=== PATIENT | female | born 1970 | race Caucasian/White ===

== ENCOUNTER 2020-10-11 00:34 | Outpatient (CLI) | payer BC, OTHER, SELFPAY ==
[2020-10-11 21:24] LABS: SARS-CoV-2 RNA PCR Negative
== END 2020-10-11 00:35 | disposition home or self-care (01) ==
LOC: ANHCOVIDDT 00:34
PROVIDERS: PCP Family Medicine; Visit Provider Internal Medicine Gastroenterology
DX: Z01.812 Encounter for preprocedural laboratory examination (principal); Z20.828 Contact with and (suspected) exposure to other viral communicable diseases
CPT/HCPCS: 87635; C9803; U0003

== ENCOUNTER 2020-10-14 01:41 | Day surgery (SDC) | payer BC, OTHER, SELFPAY ==
[2020-10-04 10:24] VITALS: BMI 23.8
[2020-10-14 06:28] VITALS: BP 128/94; PULSE 74; RESP 20; TEMP 36.7; O2SAT 98
[2020-10-14] MEDS: LACTATED RINGERS 1,000 ML 150 ML IV CONT (06:37)
--- NOTE | 2020-10-14 07:10 | WPDANESEPPF ---
Anes - Initial Pre Proc Eval Procedure: Operation Date: 10/14/20 07:30 Proposed Procedures p Screening Colonoscopy - Vic Burger MD Date/Time: 10/14/20 07:10 Surgeon: Vic Burger MD Pre Op Diagnosis: Neoplasm Screening Patient Data Age: 50 Gender: F Height: 5 ft 6.5 in Weight: 68.6 kg Last Vital Signs Temp 98.0 F 10/14/20 06:28 Pulse 74 10/14/20 06:28 Resp 20 10/14/20 06:28 BP 128/94 H 10/14/20 06:28 Pulse Ox 98 10/14/20 06:28 Allergies Allergy/AdvReac Type Severity Reaction Status Date / Time No Known Allergies Allergy Unknown Verified 09/18/20 15:39 Home Medications Medication Instructions Recorded Confirmed Type sertraline 100 mg tablet 100 mg PO DAILY #90 tablet 09/13/20 10/04/20 Rx ferrous sulfate 325 mg (65 mg 325 mg PO DAILY 09/18/20 10/04/20 History iron) tablet methylphenidate HCl 27 mg 27 mg PO QAM 09/18/20 10/04/20 History tablet,extended release 24 hr sodium,potassium,mag sulfates 17.5 354 ml PO .COMPLEX #354 ml 09/24/20 Rx gram-3.13 gram-1.6 gram oral soln diphenhydramine HCl [Benadryl] 25 mg PO HS 10/04/20 10/04/20 History Patient hx anesthesia problems: none Family hx anesthesia problems: none PMFSH Past Medical History Medical History Acute cholecystitis Anemia Attention deficit disorder (ADD) Chronic fatigue Iron deficiency anemia Irritation of left eye (~05/2019) Mood disorder Muscle soreness (~10/2018) Situational anxiety Strain of left pectoralis muscle (~12/2018) Viral conjunctivitis, left eye (~04/2019) Weight gain Surgical History Surgical History History of cholecystectomy (~09/2017) [place] teeth extracted Family History Family History Father Hypertension Social History Social History Smoking status: Never smoker Second hand tobacco smoke exposure: No Alcohol intake: current Drinks per week: 6 Substance use: never Substance use type: does not use Living arrangements: with family Gender identity (if verbalized by the patient): Female Spiritual care concerns: No Anes - Eval Final PreProcedure Day of Procedure 10/14/20 07:10 Patient weight: normal Heart: regular rate and rhythm Lungs: clear to auscultation Airway: Mallampati scale class II Neurological: alert and oriented Last oral intake: >/= 8 hours ASA classification: II Emergent: no Anesthetic plan: proceed Anesthesia type and monitoring: general GIVS and standard monitoring Informed Consent: The patient's anesthetic plan and its attendant risks and benefits were discussed with the patient/family/POA. Questions were solicited and answers provided to the satisfaction of the patient/family/POA.
--- NOTE | 2020-10-14 07:34 | PM.HPGS ---
History of Present Illness History of Present Illness Consent: Risks, benefits, and alternatives have been discussed and questions answered. Patient agrees to proceed with procedure. Chief complaint: Neoplasm Screening Narrative: Maia Palumbo is a 50 year old female here for first screening colonoscopy Review of Systems Constitutional: Constitutional: Denies headache(s) and Denies weakness Eyes: Eyes: Denies blurry vision ENT: Reports Normal hearing present, Denies headache(s) and Denies neck pain Cardiovascular: Cardiovascular: Denies chest pain and Denies dyspnea Respiratory: Respiratory: Denies dyspnea Gastrointestinal: Gastrointestinal: Reports no additional gastrointestinal complaints Genitourinary: Genitourinary: Denies dysuria Musculoskeletal: Musculoskeletal: Denies neck pain Integumentary/Breasts: Skin/Breast: Denies dry skin Neurologic: Reports Normal hearing present, Denies headache(s) and Denies weakness Psychiatric: Psychiatric: Denies anxiety Endocrine: Endocrine: Denies change in body appearance Hematologic/Lymphatic: Hematologic/Lymphatic: Denies easy bleeding Allergic/Immunologic: Allergic/Immunologic: Denies urticaria PMFSH Past Medical History Medical History Acute cholecystitis Anemia Attention deficit disorder (ADD) Chronic fatigue Iron deficiency anemia Irritation of left eye (~05/2019) Mood disorder Muscle soreness (~10/2018) Situational anxiety Strain of left pectoralis muscle (~12/2018) Viral conjunctivitis, left eye (~04/2019) Weight gain Surgical History Surgical History History of cholecystectomy (~09/2017) [place] teeth extracted Family History Family History Father Hypertension Social History Social History Smoking status: Never smoker Second hand tobacco smoke exposure: No Alcohol intake: current Drinks per week: 6 Substance use: never Substance use type: does not use Living arrangements: with family Gender identity (if verbalized by the patient): Female Spiritual care concerns: No Meds Home Medications and Allergies Home Medications Medication Instructions Recorded Confirmed Type sertraline 100 mg tablet 100 mg PO DAILY #90 tablet 09/13/20 10/04/20 Rx ferrous sulfate 325 mg (65 mg 325 mg PO DAILY 09/18/20 10/04/20 History iron) tablet methylphenidate HCl 27 mg 27 mg PO QAM 09/18/20 10/04/20 History tablet,extended release 24 hr sodium,potassium,mag sulfates 17.5 354 ml PO .COMPLEX #354 ml 09/24/20 Rx gram-3.13 gram-1.6 gram oral soln diphenhydramine HCl [Benadryl] 25 mg PO HS 10/04/20 10/04/20 History Allergies Allergy/AdvReac Type Severity Reaction Status Date / Time No Known Allergies Allergy Unknown Verified 09/18/20 15:39 Vital Signs Vital Signs - 24 hr 10/14/20 06:28 Temperature 98.0 F Pulse Rate 74 Respiratory Rate 20 Blood Pressure 128/94 H Pulse Oximetry 98 Exam Const: General: comfortable and no acute distress HENMT: General nose exam: Normal nares present Eyes: General: appearance normal, both eyes and all related structures Neck: Neck: no JVD Resp: Auscultation: clear to auscultation bilaterally Cardio: Rate: regular rate Rhythm: regular rhythm GI: Inspection: non-distended GI Palp: Yes Soft to palpation Skin: General skin exam: normal color Neuro: General: gait normal Speech: normal speech Extrem: General: normal to inspection Psych: Mental Status: mental status grossly normal Assessment and Plan Assessment and plan (1) Colon cancer screening: Code(s): Z12.11 - Encounter for screening for malignant neoplasm of colon Status: Acute Assessment and Plan: will proceed with colonoscopy
[2020-10-14 07:53] VITALS: BP 85/50; PULSE 76; RESP 16; O2SAT 95
[2020-10-14 08:03] VITALS: BP 90/55; PULSE 79; RESP 18; O2SAT 98
[2020-10-14 08:13] VITALS: BP 99/59; PULSE 63; RESP 18; O2SAT 98
== END 2020-10-14 08:37 | disposition home or self-care (01) ==
PROVIDERS: PCP Family Medicine; Visit Provider Internal Medicine Gastroenterology
PROC: 0DJD8ZZ Inspection of Lower Intestinal Tract, Via Natural or Artificial Opening Endoscopic (ICD-10-PCS; CPT 45378; principal; 2020-10-14 07:30)
DX: Z12.11 Encounter for screening for malignant neoplasm of colon (principal); K64.8 Other hemorrhoids; D50.9 Iron deficiency anemia, unspecified; F39 Unspecified mood [affective] disorder; F98.8 Other specified behavioral and emotional disorders with onset usually occurring in childhood and adolescence
CPT/HCPCS: 45378; 87635; C9803; J2704; J7120; U0003

== ENCOUNTER → 2020-12-13 15:08 | Outpatient (CLI) | payer BC, OTHER, SELFPAY ==
--- NOTE | ~2020-12-13 | MM_ITS ---
EXAMINATION: MM screening gamal BI w teri HISTORY: Screening TECHNIQUE: Craniocaudal and mediolateral oblique 3-D tomosynthesis images were obtained and synthetic 2-D images were generated. CAD analysis was submitted and interpreted. COMPARISON: Comparison to multiple prior studies sequentially, with oldest reviewed study dated 06/27. BREAST PARENCHYMAL COMPOSITION: There are scattered areas of fibroglandular density. FINDINGS: There is no evidence of suspicious mass, calcification, or architectural distortion to sugg est malignancy in either breast. There has been no suspicious interval change. IMPRESSION: 1. No mammographic evidence of malignancy. 2. Recommend routine screening mammography in one year. BI-RADS Category 1: Negative Reviewed, dictated and finalized at location A. DUMPER
== END ==
PROVIDERS: Visit Provider Nurse Practitioner Obstetrics & Gynecology
DX: Z12.31 Encounter for screening mammogram for malignant neoplasm of breast (principal)
CPT/HCPCS: 77063; 77067

== ENCOUNTER → 2021-12-19 13:03 | Outpatient (CLI) | payer BC, OTHER, SELFPAY ==
--- NOTE | ~2021-12-19 | MM_ITS ---
EXAMINATION: MM screening gamal BI w teri HISTORY: Screening TECHNIQUE: Craniocaudal and mediolateral oblique 3-D tomosynthesis images were obtained and synthetic 2-D images were generated. CAD analysis was submitted and interpreted. COMPARISON: Comparison to multiple prior studies sequentially, with oldest reviewed study dated 07/15. BREAST PARENCHYMAL COMPOSITION: There are scattered areas of fibroglandular density. FINDINGS: There is no evidence of suspicious mass, calcification, or architectural distortion to sugg est malignancy in either breast. There has been no suspicious interval change. IMPRESSION: 1. No mammographic evidence of malignancy. 2. Recommend routine screening mammography in one year. BI-RADS Category 1: Negative Reviewed, dictated and finalized at location A. [employer]
== END ==
PROVIDERS: PCP Family Medicine; Visit Provider Family Medicine
DX: Z12.31 Encounter for screening mammogram for malignant neoplasm of breast (principal)
CPT/HCPCS: 77063; 77067

== ENCOUNTER → 2022-06-26 14:21 | Outpatient (CLI) | payer BC, OTHER, SELFPAY ==
--- NOTE | ~2022-06-26 | MMUS_ITS ---
EXAMINATION: MM diagnostic gamal LT w teri, US breast LT limited HISTORY: Palpable lump in the upper inner quadrant of the left breast TECHNIQUE: Craniocaudal, mediolateral, and mediolateral oblique 3-D tomosynthesis images of the breas ts were performed and synthetic 2-D images were generated. CAD analysis was submitted and interpreted . High resolution limited left breast ultrasound was performed. COMPARISON: 12/19/2021, 12/13/2020, 10/26/2019 BREAST PARENCHYMAL COMPOSITION: There are scattered areas of fibroglandular density. FINDINGS: MAMMOGRAPHIC FINDINGS: No mammographic correlate is identified for the reported palpable abnormality of the upper inner quad rant of the left breast. There is no suspicious mass, calcification, or architectural distortion to suggest malignancy. There has been no suspicious interval change. ULTRASOUND: There is no evidence of focal abnormal solid or cystic mass in the vicinity of the reported palpable abnormality of concern. IMPRESSION: 1. No specific mammographic or sonographic correlate is identified for the reported palpable abnormal ity of concern. Further evaluation at this time should be based on clinical assessment. Continued fol low-up physical examination is recommended. 2. Recommend routine screening mammography. BI-RADS Category 1: Negative Reviewed, dictated and finalized at location A. IMPRESSION: 1. No specific mammographic or sonographic correlate is identified for the repo rted palpable abnormality of concern. Further evaluation at this time should be based on clinical assessment. Continued follow-up physical examination is binu mmended. 2. Recommend routine screening mammography. BI-RADS Category 1: Negative
== END ==
PROVIDERS: PCP Nurse Practitioner Obstetrics & Gynecology; Visit Provider Nurse Practitioner Obstetrics & Gynecology
DX: R92.8 Other abnormal and inconclusive findings on diagnostic imaging of breast (principal)
CPT/HCPCS: 76642; 77061; 77065; G0279

== ENCOUNTER 2024-05-08 14:44 | Outpatient (CLI) | payer BC, OTHER, SELFPAY ==
--- NOTE | ~2024-05-08 | MM_ITS ---
EXAMINATION: MM screening [facility] BI w teri HISTORY: Screening mammogram TECHNIQUE: Craniocaudal and mediolateral oblique 3-D tomosynthesis images were obtained and synthetic 2-D images were generated. CAD analysis was submitted and interpreted. COMPARISON: 06/26/2022, 12/19/2021, 12/13/2020 BREAST PARENCHYMAL COMPOSITION:Not Dense. There are scattered areas of fibroglandular density. FINDINGS: No suspicious mass, calcification, or architectural distortion are identified in either akira ast to suggest malignancy. There has been no suspicious interval change. IMPRESSION: No mammographic evidence of malignancy. Recommend routine screening mammography in one year. BI-RADS Category 1: Negative Reviewed, dictated and finalized at location .
== END 2024-05-08 14:45 ==
PROVIDERS: PCP Obstetrics & Gynecology; Visit Provider Obstetrics & Gynecology
DX: Z12.31 Encounter for screening mammogram for malignant neoplasm of breast (principal)
CPT/HCPCS: 77063; 77067

== ENCOUNTER 2025-06-03 11:10 | Emergency (ER) | payer BC, OTHER, SELFPAY ==
[2025-06-03 11:18] VITALS: BP 143/90; PULSE 69; RESP 16; TEMP 36.6; O2SAT 98
--- NOTE | 2025-06-03 11:41 | ED.SKABFB ---
HPI - Skin/Abscess/Foreign Bdy General Chief complaint: Extremity Injury, Lower Stated complaint: Swollen Toe Time Seen by Provider: 06/03/25 11:24 Source: patient and RN notes reviewed Mode of arrival: ambulatory Limitations: no limitations History of Present Illness HPI narrative: Patient presents today complaining of redness and pain to the left great toe. States she has very mild discomfort last night that it is significantly worse when she woke this morning. She denies any injury or trauma. States she was gardening outside yesterday in shoes with no socks on, but is unsure if this is contributory. Denies numbness or tingling in the toe. Rates her pain 07/25 with weight-bearing. She did trim the toenail 1-2 days ago because it was, ?bothering? her. Related Data Home Medications ?Medication ?Instructions ?Recorded ?Confirmed ?Last Taken ?Type diphenhydramine HCl 25 mg capsule 25 mg PO HS 10/04/20 12/14/24 10/13/20 History (Benadryl) Allergies Allergy/AdvReac Type Severity Reaction Status Date / Time No Known Allergies Allergy Unknown Verified 06/03/25 11:23 [facility] Past Medical History Medical History Attention deficit disorder (ADD) Mood disorder Anemia Acute cholecystitis Iron deficiency anemia Chronic fatigue Weight gain Muscle soreness (~10/2018) Strain of left pectoralis muscle (~12/2018) Viral conjunctivitis, left eye (~04/2019) Irritation of left eye (~05/2019) Situational anxiety Surgical History Surgical History [place] teeth extracted History of cholecystectomy (~09/2017) Family History Family History Father Hypertension Social History Social History Smoking status: Never smoker Second hand tobacco smoke exposure: No Alcohol intake: current Drinks per week: 14 Substance use: never Substance use type: does not use Lack of Transportation: No Lack of Food: Never True Current Housing: I Have Housing Concerned About Future Housing: No Difficulty Paying Gas/Electric Bills: No Difficulty Paying for Meds: No Currently Unemployed: No Education: Master's Degree or Higher Difficulty w/ Childcare or Family Care: No Living arrangements: with family Gender identity (if verbalized by the patient): Female Spiritual care concerns: No Comments At time of signature, I have reviewed and agree with nursing past medical, surgical, social and family history unless otherwise noted. Please see nursing chart for further information. There is no relevant family history pertinent to the presenting complaint Exam Narrative: GENERAL: Well-appearing, well-nourished, and in no acute distress. HEAD: Normocephalic, atraumatic. EYES: EOMI. No redness or drainage. Conjunctivae normal. ENT: Mucous membranes pink and moist. NECK: Normal AROM. CHEST: No respiratory distress. EXTREMITIES: Right great toe: Medial nail fold and proximal medial cuticle area are moderately erythematous and edematous and tender to palpation. Lateral portion of the nail fold is normal. Distal medial tip of the toe is also mildly erythematous and tender to palpation. Distal medial portion of the toenail is trimmed at an angle where the medial nail fold is significantly lower. Title otherwise normal. No active drainage. Examination of the entire toe shows no break in the skin, rash. Distal sensation intact. Capillary refill normal. Full range of motion of the toe. SKIN: Warm, dry, no rash. Capillary refill normal. Normal skin turgor. NEURO: No focal deficits. Alert and oriented x3. Gait steady. PSYCH: Normal affect. No signs of depression or anxiety. Course Course Level of Care: Express Care Visit Vital Signs Vital signs: Vital Signs Temperature 98 F 06/03/25 11:18 Pulse Rate 69 06/03/25 11:18 Respiratory Rate 16 06/03/25 11:18 Blood Pressure 143/90 H 06/03/25 11:18 Pulse Oximetry 98 06/03/25 11:18 Temperature 98 F 06/03/25 11:18 Pulse Rate 69 06/03/25 11:18 Respiratory Rate 16 06/03/25 11:18 Blood Pressure 143/90 H 06/03/25 11:18 Pulse Oximetry 98 06/03/25 11:18 Reviewed MDM - Skin/Abscess/Foreign Bdy MDM Narrative Medical decision making narrative: 55-year-old female patient presents today with redness, swelling, and pain around the right 1st toenail that started last night without any known injury or trauma. Examination shows redness and some mild edema to the medial nail fold area without drainage. Toenail had been trimmed down very short due to recent discomfort. Patient will be started on some Keflex for presumed infection and has been recommended to see Podiatry to take care of her toenail. Also recommend to soak her foot daily in warm water to help soften up the toenail. Vital signs stable. Patient agrees with plan. Differential Diagnosis Differential diagnosis: Likely abscess of skin or subcutaneous tissue, cellulitis and other (Gout, paronychia, subungual abscess, herpetic windy, dyshidrotic eczema, ingrown toenail) Critical Care Time Critical Care Time Critical Care Time: No Discharge Plan Discharge Clinical Impression: Ingrowing toenail with infection Patient Disposition: Home Condition: Stable Instructions: Antibiotic Form, Ingrown Nail (ED) Additional Instructions: Your symptoms are likely due to an ingrown toenail becoming infected. Please take the Keflex as prescribed. Soak the foot in warm water for 10-15 minutes daily. Taking anti-inflammatories such as Aleve or ibuprofen to help with your discomfort. Follow-up with podiatry regarding your ingrown toenail. Your blood pressure was elevated above 120/80 today at Urgent Care. This puts you above the threshold for follow up. Please schedule a followup visit with your personal physician as soon as possible, for further evaluation and treatment. Even blood pressure exceeding 120/80 may indicate pre-hypertension. Patient Language: Paraguayan Prescriptions: New cephalexin 500 mg capsule 500 mg PO Q6H 7 Days Qty: 28 0RF No Action ferrous sulfate 325 mg (65 mg iron) tablet 325 mg PO DAILY Qty: 1 0RF (DME) semaglutide See Rx Instructions .ROUTE .MEDSUPPLY Qty: 1 0RF Rx Instructions: semaglutide compounded, unsure of dose diphenhydramine HCl [Benadryl] 25 mg Capsule 25 mg PO HS sertraline 50 mg tablet 50 mg PO DAILY Qty: 90 3RF methylphenidate HCl 27 mg tablet extended release 24hr 27 mg PO QAM Qty: 30 0RF Follow-up/Referrals: Jeni,Uma Bach, DPM [Non-Staff] - Karrie Byrd, DPM [Physician] - Nohemy Pearson V. DPM [Physician] - PHYSICIAN,FISH ICER [Primary Care Provider] - Time of Disposition: 11:35
== END 2025-06-03 11:39 | disposition home or self-care (01) ==
PROVIDERS: Emergency Provider Nurse Practitioner
DX: L60.0 Ingrowing nail (principal); D50.9 Iron deficiency anemia, unspecified; F98.8 Other specified behavioral and emotional disorders with onset usually occurring in childhood and adolescence
CPT/HCPCS: 99213; G0463

== ENCOUNTER 2025-09-06 13:33 | Outpatient (CLI) | payer BC, OTHER, SELFPAY ==
--- NOTE | ~2025-09-06 | MM_ITS ---
EXAMINATION: MM screening gamal BI w teri HISTORY: Screening TECHNIQUE: Craniocaudal and mediolateral oblique 3-D tomosynthesis images were obtained and synthetic 2-D images were generated. CAD analysis was submitted and interpreted. COMPARISON: Comparison to multiple prior studies sequentially, with oldest reviewed study dated , 12/13/2020 BREAST PARENCHYMAL COMPOSITION: There are scattered areas of fibroglandular density. FINDINGS: There is no evidence of suspicious mass, calcification, or architectural distortion to suggest malignancy in either breast. IMPRESSION: 1. No mammographic evidence of malignancy. 2. Recommend routine screening mammography in one year. BI-RADS Category 1: Negative Reviewed, dictated and finalized at location B.
== END 2025-09-06 13:34 | disposition home or self-care (01) ==
PROVIDERS: PCP Obstetrics & Gynecology; Visit Provider Obstetrics & Gynecology
DX: Z12.31 Encounter for screening mammogram for malignant neoplasm of breast (principal)
CPT/HCPCS: 77063; 77067

== ENCOUNTER 2025-10-04 16:49 | Emergency (ER) | payer BC, OTHER, SELFPAY ==
[2025-10-04 17:00] VITALS: BP 138/89; PULSE 100; RESP 16; TEMP 36.5; O2SAT 100
--- NOTE | 2025-10-04 17:41 | ED_ITS ---
HPI - URI/Sore Throat General Chief Complaint: Upper Respiratory Infection Stated Complaint: Sore Throat/Fluid in ear Time Seen by Provider: 10/04/25 17:30 Source: patient and RN notes reviewed Mode of arrival: ambulatory Limitations: no limitations History of Present Illness HPI Narrative: 55-year-old female patient presents today with 2 week history of left-sided sore throat nasal congestion with a 2 day history of left ear pain and pressure that has been worsening since onset. Denies fever or known sick contacts. She is currently pain-free and has been taking ibuprofen with some mild relief. Related Data Home Medications ?Medication ?Instructions ?Recorded ?Confirmed ?Last Taken ?Type diphenhydramine HCl 25 mg capsule 25 mg PO HS 10/04/20 10/04/25 10/13/20 History (Benadryl) Allergies Allergy/AdvReac Type Severity Reaction Status Date / Time No Known Allergies Allergy Unknown Verified 10/04/25 16:58 PMFSH Past Medical History Medical History Attention deficit disorder (ADD) Mood disorder Anemia Acute cholecystitis Iron deficiency anemia Chronic fatigue Weight gain Muscle soreness (~10/2018) Strain of left pectoralis muscle (~12/2018) Viral conjunctivitis, left eye (~04/2019) Irritation of left eye (~05/2019) Situational anxiety Surgical History Surgical History [place] teeth extracted History of cholecystectomy (~09/2017) Family History Family History Father Hypertension Social History Social History Smoking status: Never smoker Second hand tobacco smoke exposure: No Alcohol intake: current Drinks per week: 14 Substance use: never Substance use type: does not use Lack of Transportation: No Lack of Food: Never True Current Housing: I Have Housing Concerned About Future Housing: No Difficulty Paying Gas/Electric Bills: No Difficulty Paying for Meds: No Currently Unemployed: No Education: Master's Degree or Higher Difficulty w/ Childcare or Family Care: No Living arrangements: with family Gender identity (if verbalized by the patient): Female Spiritual care concerns: No Comments At time of signature, I have reviewed and agree with nursing past medical, surgical, social and family history unless otherwise noted. Please see nursing chart for further information. There is no relevant family history pertinent to the presenting complaint Exam Narrative: GENERAL: Well-appearing, well-nourished, and in no acute distress. HEAD: Normocephalic, atraumatic. EYES: EOMI. No redness or drainage. Conjunctivae normal. ENT: Mucous membranes pink and moist. Nares clear. No rhinorrhea. Right TM and canal normal. Left TM injected with bulging. Uvula midline. Small tonsil stone on the left tonsil. No erythema of the throat. NECK: Normal AROM. Supple. No lymphadenopathy. CHEST: No respiratory distress. Clear to auscultation. HEART: Regular rate and rhythm. No murmur appreciated. EXTREMITIES: Normal range of motion. No edema. SKIN: Warm, dry, no rash. Capillary refill normal. Normal skin turgor. NEURO: No focal deficits. Alert and oriented x3. Gait steady. PSYCH: Normal affect. No signs of depression or anxiety. Course Course Level of Care: Express Care Visit Vital Signs Vital signs: Vital Signs Temperature 97.7 F 10/04/25 17:00 Pulse Rate 100 10/04/25 17:00 Respiratory Rate 16 10/04/25 17:00 Blood Pressure 138/89 10/04/25 17:00 Pulse Oximetry 100 10/04/25 17:00 Temperature 97.7 F 10/04/25 17:00 Pulse Rate 100 10/04/25 17:00 Respiratory Rate 16 10/04/25 17:00 Blood Pressure 138/89 10/04/25 17:00 Pulse Oximetry 100 10/04/25 17:00 Reviewed MDM - URI/Sore Throat MDM Narrative Medical decision making narrative: 55-year-old female patient presents today with 2 week history of left-sided sore throat nasal congestion with a 2 day history of left ear pain and pressure that has been worsening since onset. Denies fever or known sick contacts. She is currently pain-free and has been taking ibuprofen with some mild relief. Upon exam, small tonsil stone on the left tonsil. Left TM is injected bulging. Patient will be treated with course of amoxicillin for left otitis media. Recommend gargling with some salt water or diluted peroxide to help dislodge the tonsil stone, which may be causing the unilateral sore throat. Patient agrees with plan. Vital signs stable. Anticipatory guidance given. Differential Diagnosis Differential diagnosis: Likely upper respiratory infection, otitis media, viral infection and pharyngitis Critical Care Time Critical Care Time Critical Care Time: No Discharge Plan Discharge Clinical Impression: Acute left otitis media, Tonsil stone Patient Disposition: Home Condition: Stable Instructions: Antibiotic Form Additional Instructions: Please take the amoxicillin as prescribed until gone for your ear infection. It appears that you have a small tonsil stone on the left tonsil. You may try gargling with salt water or diluted peroxide (2:1 water to peroxide) every few days to help dislodge it. Follow-up with your PCP next week if symptoms persist. Patient Language: [place]an Prescriptions: New amoxicillin 875 mg tablet 875 mg PO Q12H 7 Days Qty: 14 0RF No Action (DME) semaglutide See Rx Instructions .Route .MEDSUPPLY Qty: 1 0RF Rx Instructions: semaglutide compounded, unsure of dose diphenhydramine HCl [Benadryl] 25 mg Capsule 25 mg PO HS sertraline 50 mg tablet 50 mg PO DAILY Qty: 90 3RF methylphenidate HCl 27 mg tablet extended release 24hr 27 mg PO QAM Qty: 30 0RF Follow-up/Referrals: PHYSICIAN,WORKPLACE RELATIONS ADVISER [Primary Care Provider, Internal Medicine] Time of Disposition: 17:44
== END 2025-10-04 17:46 | disposition home or self-care (01) ==
PROVIDERS: Emergency Provider Nurse Practitioner
DX: H66.92 Otitis media, unspecified, left ear (principal); J35.8 Other chronic diseases of tonsils and adenoids; F98.8 Other specified behavioral and emotional disorders with onset usually occurring in childhood and adolescence; F41.9 Anxiety disorder, unspecified
CPT/HCPCS: 99213; G0463